=== PATIENT | male | born 1940 | race Caucasian/White ===

== ENCOUNTER → 2017-08-12 | Outpatient (CLI) | payer MEDICARE, OTHER | END | disposition home or self-care (01) | LOC: LAB SHORT 16:47 → LAB 16:47 | DX: D22.71 Melanocytic nevi of right lower limb, including hip (principal) | CPT/HCPCS: 88305 ==

== ENCOUNTER 2018-10-24 21:41 | Inpatient (IN) | payer MEDICARE, OTHER ==
[~2018-10-24] VITALS: Ht 185.4 cm; Wt 88.7 kg
[2018-10-24] MEDS ORDERED: Norvasc5 MG PO (23:14)
[2018-10-24] MEDS ORDERED: GABA300 PO (23:16)
[2018-10-24] MEDS ORDERED: OLME5TAB PO (23:17)
[2018-10-24] MEDS ORDERED: Amoxicillin500 MG PO (23:18)
[2018-10-25 01:15] LABS: BASOPHILS ABSOLUTE AUTO 0.05 K/mm3 (0.00-0.23); BASOPHILS PERCENT AUTO 0 % (0-2); EOSINOPHILS ABSOLUTE AUTO 0.09 K/mm3 (0.00-0.68); EOSINOPHILS PERCENT AUTO 1 % (0-6); Hematocrit 42.7 % (37.0-53.0); Hemoglobin 14.5 g/dL (13.5-17.5); IMMATURE GRAN ABSOLUTE AUTO 0.05 K/mm3 (0.00-0.10); IMMATURE GRAN PERCENT AUTO 0 % (0-1); LYMPHOCYTES ABSOLUTE AUTO 1.26 K/mm3 (0.84-5.20); LYMPHOCYTES PERCENT AUTO 10 % (21-46); MONOCYTES ABSOLUTE AUTO 0.49 K/mm3 (0.16-1.47); MONOCYTES PERCENT AUTO 4 % (4-13); Mean Corpuscular HGB 31.3 pg (26.0-34.0); Mean Corpuscular Volume 92 fL (80-100); Mean Platelet Volume 11.4 fL (9.1-12.4); NEUTROPHILS ABSOLUTE AUTO 10.43 K/mm3 (1.96-9.15); NEUTROPHILS PERCENT AUTO 84 % (41-73); Platelet Count 257 K/mm3 (150-400); RDW Coefficient Variation 12.8 % (11.7-14.2); RDW Standard Deviation 43.5 fL (35.1-46.3); Red Blood Cell Count 4.64 M/mm3 (4.30-5.90); White Blood Cell Count 12.37 K/mm3 (4.00-11.30)
[2018-10-25 01:33] LABS: Alanine Aminotransfer (ALT/SGP 48 U/L (12-78); Albumin, Blood 4.1 g/dL (3.4-5.0); Albumin/Globulin Ratio 1.3 (0.8-1.8); Alk Phos 55 U/L (50-136); Anion Gap 8 mmol/L (6-16); Aspartate Aminotrans (AST/SGOT 27 U/L (12-37); Bilirubin, Total 0.5 mg/dL (0.1-1.0); Blood Urea Nitrogen 29 mg/dL (8-24); Bun/Creatinine Ratio 30.2 (12.0-20.0); CO2, Blood 26 mmol/L (21-32); Calcium, Blood 8.8 mg/dL (8.5-10.1); Chloride, Blood 108 mmol/L (98-108); Creatinine, Blood 0.96 mg/dL (0.60-1.20); Globulin, Blood 3.2 g/dL (2.2-4.0); Glomerular Filtration Rate >60 (60-); Glucose, Blood 124 mg/dL (70-99); Potassium, Blood 4.3 mmol/L (3.5-5.5); Sodium, Blood 142 mmol/L (136-145); Total Protein, Blood 7.3 g/dL (6.4-8.2)
--- NOTE | 2018-10-25 05:27 | NUR ---
SHIFT SUMMARY PT ADMITTED WITH TRIGEMINAL NEURALGIA PAIN. PT RELUCTANT TO HAVE TEMP TAKEN HE IS AFRAID OF PAIN WITH TOUCH TO FACE. HAS HAD THIS BEFORE, BUT WRITES THIS IS MUCH WORSE. PT ANSWERS YES AND NO WITH HEAD NODS AND COMMUNICATES WITH WRITING. PT AND SON WITH HIM IN THE ROOM. PT REFUSING ANY PO MEDICATIONS OR FOODS RIGHT NOW BECAUSE IT WILL INDUCE PAIN. IVF'S INFUSING AT 75ML/HR. IS ALERT AND ORIENTED. WILL CONTINUE TO MONITOR.
[2018-10-25 09:05] LABS: Hematocrit 40.2 % (37.0-53.0); Hemoglobin 13.7 g/dL (13.5-17.5); Mean Corpuscular HGB Conc 34.1 g/dL (31.5-36.5); Mean Corpuscular Volume 91 fL (80-100); Mean Platelet Volume 11.3 fL (9.1-12.4); Platelet Count 250 K/mm3 (150-400); RDW Coefficient Variation 12.7 % (11.7-14.2); RDW Standard Deviation 42.1 fL (35.1-46.3); Red Blood Cell Count 4.42 M/mm3 (4.30-5.90); White Blood Cell Count 8.18 K/mm3 (4.00-11.30)
--- NOTE | 2018-10-25 09:34 | NUR ---
MORNING MEDS PT. REFUSED MORNING PO MEDS. ALTERNATIVE ROUTE ORDERS REQUESTED FOR BP MEDS AND GRANTED VIA PHONE CALL TO DR. MOTA
[2018-10-25 09:39] LABS: Alanine Aminotransfer (ALT/SGP 43 U/L (12-78); Albumin, Blood 3.9 g/dL (3.4-5.0); Albumin/Globulin Ratio 1.3 (0.8-1.8); Alk Phos 54 U/L (50-136); Anion Gap 8 mmol/L (6-16); Aspartate Aminotrans (AST/SGOT 28 U/L (12-37); Bilirubin, Total 0.5 mg/dL (0.1-1.0); Blood Urea Nitrogen 22 mg/dL (8-24); Bun/Creatinine Ratio 24.4 (12.0-20.0); CO2, Blood 25 mmol/L (21-32); Calcium, Blood 8.7 mg/dL (8.5-10.1); Chloride, Blood 110 mmol/L (98-108); Globulin, Blood 2.9 g/dL (2.2-4.0); Glomerular Filtration Rate >60 (60-); Glucose, Blood 101 mg/dL (70-99); Potassium, Blood 4.1 mmol/L (3.5-5.5); Sodium, Blood 143 mmol/L (136-145); Total Protein, Blood 6.8 g/dL (6.4-8.2)
--- NOTE | 2018-10-25 14:18 | NUR ---
SHIFT SUMMARY PT. REMAINS AXO. PAIN LEVEL HAS DECREASED TO 2. HIS SON IS BY HIS SIDE AND FAMILY IS VERY ATTENTIVE TO HIS NEEDS. HE DECLINES MEALS AND PO MEDS THESE EXACERBATE THE PAIN. HE IS AVOIDING SLEEP, HE STATES THAT IT ALSO EXACERBATES THE PAIN IN HIS FACE.
--- NOTE | 2018-10-25 18:49 | NUR ---
SHIFT SUMMARY NO ACUTE CHANGES SINCE I ASSUMED CARE AT 1500. PATIENT CONTINUES TO REFUSE ALL PO AND REFUSES TO TALK. WHEN MEDCATED FOR PAIN HE REPORTED PAIN 7/.
--- NOTE | 2018-10-26 04:11 | NUR ---
SHIFT SUMMARY PT STRUGGLED THIS EVENING WITH PAIN, REPORTING CONSTANT 5-6/10 PAIN THAT RADIATES FROM L UPPER TOOTH ROOT CANAL SITE TO AROUND HIS LEFT EYE. PT DESCRIBES PAIN A "BURNING NERVE PAIN" AND REPORTS SPASMS THAT INCREASE THE PAIN TO WHAT PATIENT STATES IS AN INDESCRIBABLE LEVEL. PT ALSO STATES THAT THIS PAIN AND SPASMING IS EXACERBATED BY TALKING AT TIMES AND BY CLOSING HIS EYES. PT THEREFORE FEARFUL OF ATTEMPTING TO SLEEP STATING THAT EACH TIME HE CLOSES HIS EYES HE GETS THE SPASMS. MEDICATED W/ 1 MG OF DILAUDID WHICH WAS MOSTLY INEFFECTIVE. ATTEMPTED 2 MG THE NEXT TIME. PT BECAME VERY NAUSEATED AND DIZZY FOLLOWING BUT REPORTED THAT THE PAIN WAS GONE. MEDICATED W/ 4 MG ZOFRAN AND WITH TIME PT BEGAN FEELING LESS DIZZY AND WITHIN APPROX AN HOUR WAS ABLE TO FALL ASLEEP FOR A SHORT PERIOD OF TIME LASTING APPROX 1 1/2-2 HOURS. PT REFUSING TO EAT OR DRINK OR TAKE ANY ORAL MEDICATIONS HOWEVER PT IS TALKING MUCH MORE THIS EVENING AND SEEMS TO BE TOLERATING THAT WITHOUT MUCH INCREASE OF PAIN OR SPASMING. PT'S REMAINED AT BEDSIDE THROUGHOUT THE NIGHT. VITAL SIGNS ARE STABLE. WILL CONTINUE TO MONITOR. PT RESTING IN BED AND DENIES ANY FURTHER NEEDS AT THIS TIME.
[2018-10-26 05:36] LABS: BASOPHILS ABSOLUTE AUTO 0.01 K/mm3 (0.00-0.23); BASOPHILS PERCENT AUTO 0 % (0-2); EOSINOPHILS PERCENT AUTO 0 % (0-6); Hematocrit 40.3 % (37.0-53.0); Hemoglobin 13.5 g/dL (13.5-17.5); IMMATURE GRAN ABSOLUTE AUTO 0.03 K/mm3 (0.00-0.10); IMMATURE GRAN PERCENT AUTO 1 % (0-1); LYMPHOCYTES ABSOLUTE AUTO 0.56 K/mm3 (0.84-5.20); LYMPHOCYTES PERCENT AUTO 8 % (21-46); MONOCYTES ABSOLUTE AUTO 0.03 K/mm3 (0.16-1.47); MONOCYTES PERCENT AUTO 1 % (4-13); Mean Corpuscular HGB 31.1 pg (26.0-34.0); Mean Corpuscular HGB Conc 33.5 g/dL (31.5-36.5); Mean Corpuscular Volume 93 fL (80-100); Mean Platelet Volume 11.5 fL (9.1-12.4); NEUTROPHILS PERCENT AUTO 90 % (41-73); Platelet Count 243 K/mm3 (150-400); RDW Standard Deviation 44.2 fL (35.1-46.3); Red Blood Cell Count 4.34 M/mm3 (4.30-5.90); White Blood Cell Count 6.63 K/mm3 (4.00-11.30)
[2018-10-26 06:17] LABS: Anion Gap 8 mmol/L (6-16); Blood Urea Nitrogen 30 mg/dL (8-24); Bun/Creatinine Ratio 34.6 (12.0-20.0); CO2, Blood 22 mmol/L (21-32); Calcium, Blood 8.8 mg/dL (8.5-10.1); Chloride, Blood 113 mmol/L (98-108); Creatinine, Blood 0.87 mg/dL (0.60-1.20); Glomerular Filtration Rate >60 (60-); Glucose, Blood 150 mg/dL (70-99); Potassium, Blood 4.1 mmol/L (3.5-5.5); Sodium, Blood 143 mmol/L (136-145)
--- NOTE | 2018-10-26 19:15 | NUR ---
DISCUSSED WITH DR. BISHOP PATIENT REACTION TO ATIVAN TODAY. DISCUSSED WITH NOC RN THE PLAN FOR TAKING GABEPENTIN WITH LEANN. SONS AT BEDSIDE. CONTINUE TO MONITOR PATIENT FOR PAIN. ENCOURAGING USE OF GABEPENTIN NISA.
--- NOTE | 2018-10-27 04:43 | NUR ---
SHIFT SUMMARY PT ADMITTED FOR TRIGEMINAL NEURALGIA THAT WAS EXACERBATED BY A ROOT CANAL PER REPORT. FULL CODE. CLEAR LIQUID DIET. COLD COMPRESSES Q2H TO FACE, PT HAS DECLINED SO FAR THIS SHIFT. LOVENOX FOR DVT PROPHYLAXIS. D5W-1/2 NA KCL 20MEQ AT 125 MLS/HR. 20G IV TO L HAND. INDEPENDENT TO 1 ASSIST WITH TRANSFERS. TAKES MEDICATIONS WHOLE WITH NO WATER, TAKES DRY SWALLOW WHICH PT REPORTS IS BASELINE. PT NOTED TO HAV INCREASED CONFUSION THIS NIGHT. PT DID NOT KNOW WHERE HE WAS AND COULD NOT REMEMBER WHAT PROCEDURE WAS DONE THAT SUBSEQUENTLY LED PT TO HOSPITAL. PT AT BEDSIDE WHO REPORTS THAT PT HAS NO BASELINE CONFUSION AND STATED THAT SHE BELIEVED IT TO BE CAUSED BY THE ATIVAN. THE PTS ALSO STATED THAT THE PT HAS NEVER TAKEN A DOSE OF 600 MG OF GABAPENTIN BEFORE. PT DID APPEAR TO CLEAR THROUGHOUT THE NIGHT HOWEVER AND WAS ABLE TO ASSESS PT TO BE ALERT AND ORIENTED X4. THE PT HAS APPEARED TO SLEEP COMFORTABLY MOST OF THE NIGHT. PRN PAIN MEDICATION GIVEN X1 THIS NIGHT JUST PRIOR TO ADMINISTRATION OF ORAL MEDICATION PER PT REQUEST. NO APPARENT SIGNS OF ACUTE DISTRESS. ABLE TO MAKE NEEDS KNOWN AND CALL LIGHT IN REACH.
--- NOTE | 2018-10-28 03:12 | NUR ---
SHIFT SUMMARY PATIENT HAD NO ACUTE CHANGES OBSERVED THIS SHIFT. AXO X4 AND INDEPENDENT AND WALKED THE HALLS WITH SPOUSE. PIV REMAINS INTACT. TAKING GABAPENTIN PER EMAR. NORCO 5/325 MG, NEW ADDED TO EMAR. ABLE TO TAKE PO MEDS WHOLE WITH WATER. DENIES SOB AND N/V. VSS/AFEBRILE. SCHEDULE IV TORADOL 30 MG PER EMAR FOR LS FACE/JAW PAIN. SPOUSE STAYED THIS SHIFT. COOPERATIVE WITH CARE. CALL LIGHT IN REACH. BED IN LOWEST POSITION. WILL CONTINUE TO MONITOR UNTIL DAY SHIFT NURSE ASSUMES CARE.
--- NOTE | 2018-10-28 18:21 | NUR ---
SHIFT SUMMARY PATIENT IS DOING SIGNIFICANTY BETTER TODAY. HE IS ABLE TO MANAGE HIS PAIN WITH MEDICATION. LOZENGES HELPED SLIGHTLY FOR EASE OF SWALLOWING PILLS. FAMILY AT BEDSIDE MUCH OF THE DAY.
[2018-10-29 05:20] LABS: Anion Gap 7 mmol/L (6-16); Blood Urea Nitrogen 20 mg/dL (8-24); CO2, Blood 25 mmol/L (21-32); Calcium, Blood 8.7 mg/dL (8.5-10.1); Chloride, Blood 110 mmol/L (98-108); Creatinine, Blood 0.91 mg/dL (0.60-1.20); Glomerular Filtration Rate >60 (60-); Glucose, Blood 97 mg/dL (70-99); Potassium, Blood 3.9 mmol/L (3.5-5.5); Sodium, Blood 142 mmol/L (136-145)
--- NOTE | 2018-10-29 05:45 | NUR ---
SHIFT SUMMARY PT HAD GOOD NIGHT, MEDICATED FOR PAIN AT BEDTIME AND SLEPT T/O NIGHT. IVF'S INFUSING PER PUMP AT 100ML/HR WITHOUT DIFFICULTY. REMAINED WITH PT T/O NIGHT. NO ACUTE EVENTS NOTED, WILL CONTINUE TO MONITOR.
[2018-10-29] MEDS ORDERED: Norco 5-325 Ta1 EACH PO (11:44)
[2018-10-29] MEDS ORDERED: CEPACOL SORE T1 EACH MM (11:44)
[2018-10-29] MEDS ORDERED: NAPR220 PO (11:45)
--- NOTE | 2018-10-29 13:19 | NUR ---
PATIENT D/C'D TO HOME WITH FAMILY. D/C INSTRUCTIONS AND EDUCATION DISCUSSED WITH PATIENT AND COPY PROVIDED. PATIENT DENIES ANY QUESTIONS OR CONCERNS. RX MEDICATIONS FAXED TO [facility] AND SCRIPT FOR NORCO GIVEN TO PATIENT.
== END 2018-10-29 13:19 | disposition home or self-care (01) | DRG 74 ==
LOC: ER 21:41 → MEDS 10-25 02:28 → ENPENDDIS 10-29 11:47 → MEDS 10-29 13:19
PROVIDERS: Family Medicine; Physician Assistant; ADMIT Internal Medicine
DX: G50.0 Trigeminal neuralgia (principal); E86.0 Dehydration; F41.9 Anxiety disorder, unspecified; I10 Essential (primary) hypertension; R62.7 Adult failure to thrive
CPT/HCPCS: 36415; 70487; 80048; 80053; 85025; 85027; 96361-59; 96365-59; 96375-59; 96376-59; 99285-25; A9270-GY; J0360; J1165; J1170; J1650; J1885; J2060; J2405; J2930; J3010; J3480; J7030; Q9967

== ENCOUNTER → 2019-06-01 | Outpatient (CLI) | payer MEDICARE, OTHER ==
[~2019-06-01] MED LIST: Amoxicillin500 MG PO; CEPACOL SORE T1 EACH MM; GABA300 PO; NAPR220 PO; Norco 5-325 Ta1 EACH PO; Norvasc5 MG PO; OLME5TAB PO
== END | disposition home or self-care (01) ==
LOC: PLD 14:04 → LAB SHORT 14:04
DX: L21.9 Seborrheic dermatitis, unspecified (principal)
CPT/HCPCS: 88305; 88312

== ENCOUNTER 2024-07-01 12:03 | Inpatient (IN) | payer MEDICARE, OTHER ==
[~2024-07-01] VITALS: Ht 185.4 cm; Wt 78.5 kg
[2024-07-01 13:17] VITALS: BP 173/74
[2024-07-01] MEDS ORDERED: CENTRUM SILVER1 EAC2 PO (13:24)
[2024-07-01] MEDS ORDERED: ASPIR 8181 M1 PO (13:24)
[2024-07-01] MEDS ORDERED: AMOCLA875 PO (13:25)
[2024-07-01] MEDS ORDERED: AZIT250 PO (13:25)
[2024-07-01] MEDS ORDERED: Ondansetron 4 MG TAB PO PRN (13:40)
[2024-07-01] MEDS ORDERED: FLU VACC TS2024-25(6MOS UP)/PF 45 MCG/0.5 ML SYRINGE IM SCH (13:40)
--- NOTE | 2024-07-01 13:51 | NUR ---
Pt. is awake in bed when he welcomes my visit. Pt. is pleasant. Spouse is at bedside. Both the Pt. and Spouse are known to this disc ruler operator from the community. Facilitated a life review and was updated on the events that led to his admission. Listened with empathy and a calming presence. Pt. displayed evience of engagement and awareness. Prayed with the Pt. as his attending nurse arrived to settle the Pt. into his room.
[2024-07-01 14:11] LABS: BASOPHILS ABSOLUTE AUTO 0.07 K/mm3 (0.00-0.23); BASOPHILS PERCENT AUTO 1 % (0-2); EOSINOPHILS ABSOLUTE AUTO 0.11 K/mm3 (0.00-0.68); EOSINOPHILS PERCENT AUTO 1 % (0-6); Hemoglobin 14.2 g/dL (13.5-17.5); IMMATURE GRAN ABSOLUTE AUTO 0.03 K/mm3 (0.00-0.10); IMMATURE GRAN PERCENT AUTO 0 % (0-1); LYMPHOCYTES ABSOLUTE AUTO 2.06 K/mm3 (0.84-5.20); LYMPHOCYTES PERCENT AUTO 25 % (21-46); MONOCYTES ABSOLUTE AUTO 0.65 K/mm3 (0.16-1.47); MONOCYTES PERCENT AUTO 8 % (4-13); Mean Corpuscular HGB 31.1 pg (26.0-34.0); Mean Corpuscular HGB Conc 35.5 g/dL (31.5-36.5); Mean Corpuscular Volume 88 fL (80-100); Mean Platelet Volume 11.1 fL (9.1-12.4); NEUTROPHILS PERCENT AUTO 65 % (41-73); Platelet Count 288 K/mm3 (150-400); RDW Coefficient Variation 12.9 % (11.7-14.2); RDW Standard Deviation 41.8 fL (35.1-46.3); Red Blood Cell Count 4.56 M/mm3 (4.30-5.90); White Blood Cell Count 8.42 K/mm3 (4.00-11.30)
[2024-07-01 14:58] LABS: Albumin, Blood 3.8 g/dL (3.4-5.0); Albumin/Globulin Ratio 1.2 (0.8-1.8); Bilirubin, Total 0.4 mg/dL (0.1-1.0); Bun/Creatinine Ratio 35.2 (12.0-20.0); Calcium, Blood 9.6 mg/dL (8.5-10.1); Creatinine, Blood 0.8 mg/dL (0.60-1.20); Globulin, Blood 3.3 g/dL (2.2-4.0); Potassium, Blood 3.5 mmol/L (3.5-5.5); Thyroid Stimulating Hormone 2.78 uIU/mL (0.360-4.800); Total Protein, Blood 7.1 g/dL (6.4-8.2)
--- NOTE | 2024-07-01 15:10 | NUR ---
PT ARRIVED DIRECT ADMIT, A/O WITH SOME SIGNS OF POSSIBLE STROKE, LEFT SIDED WEAKNESS AND SLIGHT LEFT FACIAL DROOP WITH SLURRED SPEECH. SON AT BEDSIDE TO ASSIST WITH CHANGING AND PT TRANSFER ALSO WITH HISTORY, ALSO AT BEDSIDE. PT IN GOOD SPIRITS AND COOPERATIVE, AWAITNG FOR ADMIN TO ENTER PT TO SYSTEM FOR ORDERS TO BE ENTERED. CALL LIGHT WITHIN REACH FAMILY AND PT AWARE OF HOW TO CALL OR ALERT STAFF.
--- NOTE | 2024-07-01 15:14 | NUR ---
[address], DONNA WELL AND BACK IN ROOM .
[2024-07-01 15:32] VITALS: BP 146/78
[2024-07-01] MEDS ORDERED: Aspirin 81 MG Chew PO SCH (16:00)
[2024-07-01] MEDS ORDERED: Atorvastatin 40 MG Tab PO SCH (16:00)
[2024-07-01] MEDS ORDERED: AmLODIPine Besylate 5 MG Tab PO SCH (16:00)
[2024-07-01] MEDS ORDERED: Losartan Potassium 50 MG Tab PO SCH (16:00)
[2024-07-01] MEDS ORDERED: Lidocaine 4% 1 Patch TOP PRN (16:30)
[2024-07-01 17:29] LABS: Source, Urine Clean Catch
[2024-07-01 17:33] LABS: Appearance, Urine Clear (Clear); Bilirubin, Urine Neg (Neg); Blood, Urine Neg (Neg); Color, Urine Yellow (P-Yellow); Glucose Qualitative, Urine Neg (Neg); Ketones, Urine Neg (Neg); Leukocyte Esterase, Urine Neg (Neg); Nitrite, Urine Neg (Neg); Protein, Urine Neg (Neg); Urobilinogen, Urine NORM (Normal); pH, Urine 6.5 (5.0-8.0)
[2024-07-01 19:23] VITALS: BP 151/67
[2024-07-02 02:12] VITALS: BP 142/78
[2024-07-02 05:06] LABS: BASOPHILS PERCENT AUTO 1 % (0-2); EOSINOPHILS ABSOLUTE AUTO 0.21 K/mm3 (0.00-0.68); EOSINOPHILS PERCENT AUTO 3 % (0-6); Hematocrit 38.7 % (37.0-53.0); Hemoglobin 13.7 g/dL (13.5-17.5); IMMATURE GRAN ABSOLUTE AUTO 0.02 K/mm3 (0.00-0.10); IMMATURE GRAN PERCENT AUTO 0 % (0-1); LYMPHOCYTES ABSOLUTE AUTO 2.42 K/mm3 (0.84-5.20); LYMPHOCYTES PERCENT AUTO 29 % (21-46); MONOCYTES ABSOLUTE AUTO 0.59 K/mm3 (0.16-1.47); MONOCYTES PERCENT AUTO 7 % (4-13); Mean Corpuscular HGB 31.3 pg (26.0-34.0); Mean Corpuscular HGB Conc 35.4 g/dL (31.5-36.5); Mean Corpuscular Volume 88 fL (80-100); Mean Platelet Volume 11.7 fL (9.1-12.4); NEUTROPHILS ABSOLUTE AUTO 4.93 K/mm3 (1.96-9.15); NEUTROPHILS PERCENT AUTO 60 % (41-73); Platelet Count 269 K/mm3 (150-400); RDW Coefficient Variation 12.8 % (11.7-14.2); RDW Standard Deviation 41.9 fL (35.1-46.3); Red Blood Cell Count 4.38 M/mm3 (4.30-5.90); White Blood Cell Count 8.27 K/mm3 (4.00-11.30)
--- NOTE | 2024-07-02 05:21 | NUR ---
Pt direct admit, Pt A&O x4, developed some confusion in night, but easily directed to reality. Pt VS WNL, took meds whole with water, PO intake without issue. Pt with left side weakness/neglect, leans to left with ambulation. Up with FWW, but judgement off in r/t saftey. Continent of B&B. Awaiting PT/OT/APPRENTICESHIP CONSULTANT evals. very supportive. Denied pain, although states he get muscle cramps in left leg often.
[2024-07-02 06:02] LABS: Alanine Aminotransfer (ALT/SGP 27 U/L (12-78); Albumin, Blood 3.6 g/dL (3.4-5.0); Albumin/Globulin Ratio 1.2 (0.8-1.8); Alk Phos 69 U/L (50-136); Anion Gap 8 mmol/L (3-11); Aspartate Aminotrans (AST/SGOT 27 U/L (12-37); Blood Urea Nitrogen 21 mg/dL (8-24); Bun/Creatinine Ratio 26.7 (12.0-20.0); CO2, Blood 27 mmol/L (21-32); Calcium, Blood 9.1 mg/dL (8.5-10.1); Chloride, Blood 107 mmol/L (98-108); Cholesterol 131 mg/dL (50-200); Creatinine, Blood 0.79 mg/dL (0.60-1.20); Glomerular Filtration Rate 89 (60-); Glucose, Blood 109 mg/dL (70-99); HDL Cholesterol 43 mg/dL (>39); LDL/HDL RATIO 1.7; Low Density Lipoprotein Chol 73 mg/dL (0-110); Magnesium, Blood 2.3 mg/dL (1.6-2.4); Potassium, Blood 3.1 mmol/L (3.5-5.5); Sodium, Blood 139 mmol/L (136-145); Total Protein, Blood 6.6 g/dL (6.4-8.2); Triglycerides 75 mg/dL (30-160); Very Low Density Lipoprot Chol 15 mg/dL (6-32)
[2024-07-02 07:34] VITALS: BP 153/77
[2024-07-02] MEDS ORDERED: Enoxaparin 40 MG/0.4 ML SYR SC SCH (09:00)
--- NOTE | 2024-07-02 12:55 | NUR ---
Pt. is awake in bed and welcomes my visit. Spouse is at bedside. Pt. is pleasant and verbalizes about the excellent care he has recieved from the entire staff. Rapport is re-established. Family verbalizes that they are awaiting feedback from the Pts. MRI, but they expect that the Pt. will go to a rehab facility before he goes home. Listen with interest and empathy. Facilitated a long conversation with the family. Pt. displayed evidence of being engaged and aware. Took Pt. and spouse by the hand and Prayed with Pt. Pt. and spouse verbalized gratitude for the spiritual care visit.
[2024-07-02] MEDS ORDERED: Potassium Chloride 20 MEQ TabCR PO ONE (13:00)
[2024-07-02 15:48] VITALS: BP 158/72
--- NOTE | 2024-07-02 16:33 | NUR ---
alert and oriented x4, makes needs known, at bedside. mri done and barium swallow. possible [place]. call light with in reach, will relay to pm rn
[2024-07-02 19:04] VITALS: BP 145/71
[2024-07-03 02:44] VITALS: BP 166/74
[2024-07-03 03:38] VITALS: BP 136/75
[2024-07-03 06:59] VITALS: BP 157/74
--- NOTE | 2024-07-03 11:19 | NUR ---
DR HAYNES IN ROOM, HELPFUL AT BEDSIDE, PATIENT WORKED WITH PT
[2024-07-03 15:16] VITALS: BP 150/76
[2024-07-03] MEDS ORDERED: Melatonin 5 MG Tablet PO PRN (15:25)
--- NOTE | 2024-07-03 17:26 | NUR ---
NO ACUTE CHANGES, POSSIBLE [facility] TO [facility] TOMORROW, WORKED WITH PT, FAMILY HELPFUL AT BEDSIDE, ECHO ORDERED AND MELATONIN FOR TONIGHT. ALERT AND ORIENTED X4, CALL LIGHT WITH IN REACH
[2024-07-03 19:11] VITALS: BP 150/80
[2024-07-04 03:12] VITALS: BP 145/69
[2024-07-04 05:08] LABS: BASOPHILS ABSOLUTE AUTO 0.09 K/mm3 (0.00-0.23); BASOPHILS PERCENT AUTO 1 % (0-2); EOSINOPHILS ABSOLUTE AUTO 0.31 K/mm3 (0.00-0.68); EOSINOPHILS PERCENT AUTO 4 % (0-6); Hematocrit 40.1 % (37.0-53.0); Hemoglobin 14.2 g/dL (13.5-17.5); IMMATURE GRAN ABSOLUTE AUTO 0.02 K/mm3 (0.00-0.10); IMMATURE GRAN PERCENT AUTO 0 % (0-1); LYMPHOCYTES ABSOLUTE AUTO 2.58 K/mm3 (0.84-5.20); LYMPHOCYTES PERCENT AUTO 30 % (21-46); MONOCYTES ABSOLUTE AUTO 0.69 K/mm3 (0.16-1.47); MONOCYTES PERCENT AUTO 8 % (4-13); Mean Corpuscular HGB 31.3 pg (26.0-34.0); Mean Corpuscular HGB Conc 35.4 g/dL (31.5-36.5); Mean Corpuscular Volume 89 fL (80-100); Mean Platelet Volume 11.8 fL (9.1-12.4); NEUTROPHILS ABSOLUTE AUTO 5.03 K/mm3 (1.96-9.15); NEUTROPHILS PERCENT AUTO 58 % (41-73); Platelet Count 285 K/mm3 (150-400); RDW Standard Deviation 41.8 fL (35.1-46.3); Red Blood Cell Count 4.53 M/mm3 (4.30-5.90); White Blood Cell Count 8.72 K/mm3 (4.00-11.30)
[2024-07-04 05:31] LABS: Albumin, Blood 3.6 g/dL (3.4-5.0); Albumin/Globulin Ratio 1.2 (0.8-1.8); Bilirubin, Total 0.6 mg/dL (0.1-1.0); Bun/Creatinine Ratio 23.4 (12.0-20.0); Calcium, Blood 9.2 mg/dL (8.5-10.1); Creatinine, Blood 0.81 mg/dL (0.60-1.20); Globulin, Blood 3.1 g/dL (2.2-4.0); Potassium, Blood 3.6 mmol/L (3.5-5.5); Total Protein, Blood 6.7 g/dL (6.4-8.2)
[2024-07-04 07:01] VITALS: BP 162/81
--- NOTE | 2024-07-04 12:59 | NUR ---
FAMILY AT BEDSIDE THROUGH OUT SHIFT, EDUCATED ON MEDICATIONS AND ALSO END OF LIFE PHYSIOLOGICAL PROCESS. PT HAS FOAM/LIQUID DRAINING FROM [facility], RN EDUCATED PT'S FAMILY ON DYING PROCESS. PT'S BREATHING HAS SLOWED, BUT RESPIRATIONS APPEAR TO USE LESS ACCESSORY MUSCLES, PT SEEMS MORE RELAXED. FAMILY IS UNDERSTANDING. EMOTIONAL SUPPORT FROM CARE STAFF CONTINUES.
--- NOTE | 2024-07-04 13:04 | NUR ---
PT'S IS AT THE BEDSIDE. SHE ASSISTED PT TO PARTICIAPTE WITH PHYSICAL THERAPY EXERCISES THAT ARE CHAIR BASED. RN AND PRESCHOOL TEACHER AIDE THEN ASSISTED PT BACK TO BED, AND HE COMPLETED HIS PT EXERCISES IN BED. FAMILY IS KNOWLEDGABLE REGARDING CONDITION, AND PT AND HIS ARE ACTIVELY SEEKING TO PARTICIPATE IN PHYSICAL THERAPY. [facility], INSURANCE PENDING.
[2024-07-04 15:00] VITALS: BP 141/72
--- NOTE | 2024-07-04 15:03 | NUR ---
NATALIE IS ON ROOM AIR. TAKES PILLS WHOLE WITH FLUIDS, PT REQUESTS APPLESAUCE TO HELP HIM SWALLOW. DYSPAHGIA PRECAUTIONS FOR A DRY SWALLOW AFTER EACH DRINK. HE HAS LEFT SIDED DEFICITS AND IS SLOW TO RESPOND, NEEDS SOME THINGS REPEATED FOR HIM TO UNDERSTAND. FAMILY AT BEDSIDE SINCE AFTER BREAKFAST, STAYED THROUGH OUT THE SHIFT. FULL CODE. IV ACCESS TO RIGHT ARM. CONTINENT WITH SBA FOR SAFETY TO BATHROOM. NATALIE IS PLEASANT WITH STAFF AND ACTIVELY PARTICIPATES IN CARE.
[2024-07-04 20:05] VITALS: BP 137/61
[2024-07-05 04:02] VITALS: BP 134/75
[2024-07-05 04:56] LABS: BASOPHILS PERCENT AUTO 1 % (0-2); EOSINOPHILS PERCENT AUTO 3 % (0-6); Hematocrit 40.6 % (37.0-53.0); Hemoglobin 14.6 g/dL (13.5-17.5); IMMATURE GRAN ABSOLUTE AUTO 0.03 K/mm3 (0.00-0.10); IMMATURE GRAN PERCENT AUTO 0 % (0-1); LYMPHOCYTES ABSOLUTE AUTO 3.21 K/mm3 (0.84-5.20); LYMPHOCYTES PERCENT AUTO 29 % (21-46); MONOCYTES PERCENT AUTO 8 % (4-13); Mean Corpuscular HGB 31.8 pg (26.0-34.0); Mean Corpuscular Volume 89 fL (80-100); Mean Platelet Volume 11.8 fL (9.1-12.4); NEUTROPHILS PERCENT AUTO 60 % (41-73); Platelet Count 281 K/mm3 (150-400); RDW Coefficient Variation 12.9 % (11.7-14.2); RDW Standard Deviation 41.9 fL (35.1-46.3); Red Blood Cell Count 4.59 M/mm3 (4.30-5.90); White Blood Cell Count 11.24 K/mm3 (4.00-11.30)
[2024-07-05 05:26] LABS: Albumin, Blood 3.7 g/dL (3.4-5.0); Albumin/Globulin Ratio 1.2 (0.8-1.8); Bilirubin, Total 0.7 mg/dL (0.1-1.0); Calcium, Blood 9.5 mg/dL (8.5-10.1); Creatinine, Blood 1.2 mg/dL (0.60-1.20); Globulin, Blood 3.2 g/dL (2.2-4.0); Potassium, Blood 3.9 mmol/L (3.5-5.5); Total Protein, Blood 6.9 g/dL (6.4-8.2)
[2024-07-05 07:05] VITALS: BP 125/77
[2024-07-05] MEDS ORDERED: Polyethylene Glycol 3350 17 gm PO ONE (11:15)
[2024-07-05 12:34] LABS: CORONAVIRUS COVID-19 AG Negative (NEGATIVE)
[2024-07-05] MEDS ORDERED: ATOR40TA PO (13:13)
[2024-07-05] MEDS ORDERED: MIRALAX17 GM PO (13:15)
--- NOTE | 2024-07-05 16:41 | NUR ---
DISCHARGE NOTE PT A&OX4. PT ADMITTED DUE TO ISCHEMIC STROKE. PT HAS L SIDE DEFICITES. PT LEFT WITH BELONGINGS, GAVE PT DISCHARGE INSTRUCTIONS. CALLED TO GIVE REPORT TO UV[facility]. IV WAS D/C'D. PT ABLE TO SWALLOW THIN LIQUIDS. PT ESCORTED BY TRANSPORT TO R. PT LEFT WITH BELONGINGS. PT USED FWW WITH SBA DURING SHIFT. PT REPORTED NO PAIN. PT VERY MOTIVATED TO IMPROVE CONDITION, WORKED WITH PT OT TODAY.
== END 2024-07-05 17:03 | DRG 65 ==
LOC: MEDS 12:03
PROVIDERS: Family Medicine; ADMIT Internal Medicine
DX: I63.81 Other cerebral infarction due to occlusion or stenosis of small artery (principal); G81.94 Hemiplegia, unspecified affecting left nondominant side; E78.5 Hyperlipidemia, unspecified; R13.12 Dysphagia, oropharyngeal phase; I10 Essential (primary) hypertension; G50.0 Trigeminal neuralgia; G47.00 Insomnia, unspecified; M19.90 Unspecified osteoarthritis, unspecified site; F51.3 Sleepwalking [somnambulism]; R29.810 Facial weakness; R47.81 Slurred speech; Z87.891 Personal history of nicotine dependence; Z88.8 Allergy status to other drugs, medicaments and biological substances; Z88.5 Allergy status to narcotic agent; Z79.82 Long term (current) use of aspirin
CPT/HCPCS: 36415; 70450; 70496; 70498; 70553; 74230; 80053; 80061; 81003; 83036; 83735; 84443; 85025; 87426-QW; 92610; 92611; 93306; 97110; 97110-CQ; 97112; 97116; 97116-CQ; 97161; 97165; 97530; 97530-CQ; 97535; A9270; A9579; J1650; Q9967

== ENCOUNTER 2024-07-14 02:51 | Emergency (ER) | payer MEDICARE, OTHER ==
[~2024-07-14] VITALS: Ht 185.4 cm; Wt 79.4 kg
[~2024-07-14 02:51] MED LIST changes: +AMOCLA875 PO; +ASPIR 8181 M1 PO; +ATOR40TA PO; +AZIT250 PO; +CENTRUM SILVER1 EAC2 PO; +MIRALAX17 GM PO
[2024-07-14] MEDS ORDERED: Ketorolac Tromethamine 30mg Vial IV ONE (04:05)
[2024-07-14] MEDS ORDERED: NS 1,000 ML IV SCH (04:05)
[2024-07-14 04:24] LABS: BASOPHILS ABSOLUTE AUTO 0.08 K/mm3 (0.00-0.23); BASOPHILS PERCENT AUTO 1 % (0-2); EOSINOPHILS ABSOLUTE AUTO 0.08 K/mm3 (0.00-0.68); EOSINOPHILS PERCENT AUTO 1 % (0-6); Hematocrit 41.9 % (37.0-53.0); IMMATURE GRAN ABSOLUTE AUTO 0.02 K/mm3 (0.00-0.10); IMMATURE GRAN PERCENT AUTO 0 % (0-1); LYMPHOCYTES ABSOLUTE AUTO 1.38 K/mm3 (0.84-5.20); LYMPHOCYTES PERCENT AUTO 13 % (21-46); MONOCYTES ABSOLUTE AUTO 0.45 K/mm3 (0.16-1.47); MONOCYTES PERCENT AUTO 4 % (4-13); Mean Corpuscular HGB 31.5 pg (26.0-34.0); Mean Corpuscular HGB Conc 35.8 g/dL (31.5-36.5); Mean Corpuscular Volume 88 fL (80-100); Mean Platelet Volume 11.6 fL (9.1-12.4); NEUTROPHILS ABSOLUTE AUTO 8.36 K/mm3 (1.96-9.15); NEUTROPHILS PERCENT AUTO 81 % (41-73); Platelet Count 281 K/mm3 (150-400); RDW Coefficient Variation 12.1 % (11.7-14.2); RDW Standard Deviation 39.5 fL (35.1-46.3); Red Blood Cell Count 4.76 M/mm3 (4.30-5.90); White Blood Cell Count 10.37 K/mm3 (4.00-11.30)
[2024-07-14 04:42] LABS: Magnesium, Blood 2.2 mg/dL (1.6-2.4); Phosphorus, Blood 2.9 mg/dL (2.5-4.9)
[2024-07-14] MEDS ORDERED: FentaNYL Citrate 50 MCG/ML 2 ML Injection ONE (05:04)
[2024-07-14 05:22] VITALS: BP 143/68
[2024-07-14 05:33] LABS: Influenza A, PCR NEGATIVE (NEGATIVE); Influenza B, PCR NEGATIVE (NEGATIVE); Resp Syncytial Virus, PCR NEGATIVE (NEGATIVE); SARS-Cov-2 (COVID-19) PCR, MMC NEGATIVE (NEGATIVE)
== END 2024-07-14 07:30 | disposition home or self-care (01) ==
LOC: ER 02:51
PROVIDERS: Emergency Medicine
DX: M62.838 Other muscle spasm (principal); I10 Essential (primary) hypertension; Z86.73 Personal history of transient ischemic attack (TIA), and cerebral infarction without residual deficits; Z79.82 Long term (current) use of aspirin; Z79.899 Other long term (current) drug therapy; Z88.5 Allergy status to narcotic agent
CPT/HCPCS: 0241U; 83735; 84100; 85025; 93971; 96374; 96375; 99284-25; J1885; J3010; J7030

== ENCOUNTER → 2024-10-04 | Outpatient (CLI) | payer MEDICARE, OTHER ==
[2024-10-16 15:13] LABS: OVA AND PARASITE,FECAL INTERP Negative (Negative)
== END | disposition home or self-care (01) ==
LOC: LAB 14:00 → LAB SHORT 14:00
PROVIDERS: Internal Medicine
DX: R19.7 Diarrhea, unspecified (principal)
CPT/HCPCS: 87177; 87209

== ENCOUNTER → 2024-10-06 | Outpatient (CLI) | payer MEDICARE, OTHER | END | disposition home or self-care (01) | LOC: LAB 08:49 → LAB SHORT 08:49 | DX: R19.7 Diarrhea, unspecified (principal); K92.1 Melena ==

== ENCOUNTER → 2024-10-06 | Outpatient (CLI) | payer MEDICARE, OTHER ==
[2024-10-07 11:08] LABS: Stool Occult Bld Immuno 1 Negative (NEGATIVE)
[2024-10-10 13:01] LABS: GIARDIA ANTIGEN BY EIA Negative (Negative)
[2024-10-10 13:04] LABS: CRYPTOSPORIDIUM ANTIGEN BY EIA Negative (Negative)
[2024-10-10 13:53] LABS: CALPROTECTIN,FECAL 124 ug/g (<=49)
== END ==
LOC: LAB SHORT 09:10 → LAB 09:10
PROVIDERS: Internal Medicine
DX: R19.7 Diarrhea, unspecified (principal); K92.1 Melena
CPT/HCPCS: 82274; 83993; 87328; 87329